=== PATIENT | female | born 1950 | race Caucasian/White ===

== ENCOUNTER 2020-02-01 14:45 | Emergency (ER) | payer MEDICARE, OTHER, SELFPAY ==
[2020-02-01] VITALS (8 sets, daily range): BP systolic 97–123; BP diastolic 60–88; PULSE 103–130; RESP 15–19; TEMP 36.4–36.9; O2SAT 90–96; BMI 35.2
--- NOTE | 2020-02-01 15:10 | W.ED.GENADLT ---
HPI - General Adult General: Chief complaint: General Medical Stated complaint: not feeling well post surgery Time Seen by Provider: 02/01/20 15:10 History of Present Illness: HPI narrative: 69-year-old female Complaining of generalized weakness she stood up today and almost felt like she was going to pass out she is extremely weak she had a knee surgery done a couple of weeks ago postoperatively her hemoglobin dropped down to 6 8 she was transfused and went back up to 7.7. She is not had any pain today she denies any abdominal pain or chest pain no nausea vomiting or diarrhea no dysuria urgency or frequency she does have a little shortness of breath with exertion but no associated chest pain the shortness of breath is proportion to her exertion does not seem abnormal for her. Onset (ago): hour(s) Severity: moderate Relieving factors: rest Exacerbating factors: movement Associated symptoms: Reports malaise; Deny chest pain, confusion, cough, diaphoresis, decreased appetite, dyspnea, fevers/chills, headache(s), nausea, rash, palpitations, short of breath, syncope, vomiting or weakness Treatments prior to arrival: none Review of Systems Const: Reports: malaise; Denies: diaphoresis ENMT: Denies: throat pain, ear or mastoid pain, nasal discharge or nasal congestion Card: Denies: chest pain, palpitations or syncope Resp: Denies: dyspnea GI: Denies: nausea or vomiting : Denies: flank pain, difficulty voiding, dysuria, urinary frequency or urinary urgency Skin/Breast: Denies: rash or pruritus Neuro: Denies: headache(s) or confusion PFS ED PFSH: Medical History (Updated 02/01/20 @ 17:39 by Ren Wren DO) Hypertension Surgical History (Updated 02/01/20 @ 17:40 by Ren Wren DO) History of arthroplasty of left knee Physical Exam Const: COMMON NORMALS: no acute distress GENERAL APPEARANCE: cooperative and comfortable ORIENTATION/CONSCIOUSNESS: Yes awake, Yes oriented to person, Yes oriented to place and Yes oriented to time HENMT: COMMON NORMALS: normocephalic and atraumatic HEAD & SCALP: normocephalic and atraumatic Eye: COMMON NORMALS: Equal, round and reactive pupils present, EOMs intact bilaterally, conjunctivae normal and no scleral icterus CONJUNCTIVA: Yes conjunctivae normal PUPIL: Yes Equal, round and reactive pupils present Neck/C-Spine: COMMON NORMALS: full ROM, no lymphadenopathy, supple and no JVD Lymph: LYMPHATIC: no lymphadenopathy noted and no lymphedema noted Resp: COMMON NORMALS: normal respiratory effort, No retractions, No use of accessory muscles and clear to auscultation bilaterally AUSCULTATION: clear to auscultation bilaterally Cardio: COMMON NORMALS: no JVD, regular rate, regular rhythm and No murmurs present (Cardio) RATE: regular rate RHYTHM: regular rhythm GI: COMMON NORMALS: Soft to palpation and No hepatosplenomegaly present AUSCULTATION: Yes normoactive bowel sounds PALPATION: Yes Soft to palpation, No Tenderness to palpation present (GI), No Guarding due to palpation present (GI) and Yes No hepatosplenomegaly present Extremity: COMMON NORMALS: normal to inspection, capillary refill normal, no clubbing, cyanosis or edema, no calf tenderness and no pedal edema Neuro: SENSORIUM/ORIENTATION: Yes oriented to person, Yes oriented to place and Yes oriented to time Skin: COMMON NORMALS: no rashes or lesions noted GENERAL SKIN EXAM: no rashes or lesions noted Course Vital Signs: Vital signs: Vital Signs Temperature 97.6 F 02/01/20 14:49 Pulse Rate 113 H 02/01/20 17:04 Respiratory Rate 18 02/01/20 14:49 Blood Pressure 105/74 02/01/20 17:04 Pulse Oximetry 90 02/01/20 14:49 MDM - General Adult MDM Narrative: Medical decision making narrative: Patient still has mild anemia but it is actually improved from previous. Her postural hype orthostatics were normal. She is feeling somewhat better will go ahead and discharge her home encourage mild to moderate activity at home follow-up with her doctor as planned return to the emergency room if she has any difficulty or problems. Lab Data: Labs: Lab Results 02/01/20 02/01/20 02/01/20 Range/Units 15:39 15:39 16:11 WBC 13.3 H (4.0-10.0) 10^3/ uL RBC 3.80 L (4.1-5.3) 10^6/u L Hgb 8.7 L (11.5-15.3) g/dL Hct 30.1 L (37.0-47.0) % MCV 79.2 L (81-99) fL MCH 22.9 L (28.0-34.0) pg MCHC 28.9 L (30.0-36.0) g/dL RDW 17.8 H (12.1-15.1) % Plt Count 363 (130-400) 10^3/c mm MPV 9.4 (7.4-10.4) fL Neut % (Auto) 83.9 % Lymph % (Auto) 9.6 % [place] % (Auto) 5.2 % Eos % (Auto) 0.2 % Baso % (Auto) 0.4 % Neut # (Auto) 11.19 H (1.8-7.7) 10^3/u L Lymph # (Auto) 1.3 (0.8-4.8) 10^3/u L [place] # (Auto) 0.7 (0.2-0.9) 10^3/u L Eos # (Auto) 0.0 (0.0-0.8) 10^3/u L Baso # (Auto) 0.1 (0.0-0.1) 10^3/u L Nucleated RBC % (a uto) 0 % Nucleated RBCs # 0.0 /100WBC Sodium 139 (136-145) mmol/L Potassium 3.8 (3.5-5.1) mmol/L Chloride 99 (98-107) mmol/L Carbon Dioxide 25 (22-29) mmol/L Anion Gap 18.8 (5-19) BUN 24 H (8-23) mg/dL Creatinine 0.7 (0.5-0.9) mg/dL GFR Calculation 83.0 L (90-130) mL/min Glucose 149 H (65-115) mg/dL Calculated Osmolal ity 288 (285-295) mOsm/k g Calcium 9.2 (8.5-10.5) mg/dL Total Bilirubin 0.3 (0.15-1.2) mg/dL AST 15 (0-32) U/L ALT 8 (0-33) U/L Alkaline Phosphata se 93 (35-105) IU/L Total Protein 7.6 (6.6-8.7) g/dL Albumin 4.0 (3.5-5.2) g/dL Globulin 3.6 (1.3-4.6) g/dL Urine Color Straw (Yellow) Urine Appearance Clear (CLEAR) Urine pH 5 (5-7) Ur Specific Gravit y 1.015 (1.005-1.030) Urine Protein Neg (Negative) Urine Glucose (UA) Norm (Normal) Urine Ketones Negative (Negative) Urine Blood Neg (Negative) Urine Nitrate Negative (Negative) Urine Bilirubin Neg (NEGATIVE) Urine Urobilinogen Norm (Negative) mg/dL Ur Leukocyte Dipti ase Negative (Negative) Discharge Plan Discharge Patient Disposition: Home Clinical Impression: Postural hypotension, Anemia Condition: Stable Prescriptions: No Action Multiple Vitamins Tablet 1 tab PO DAILY RF: 0 nifedipine 30 mg tablet extended release 24hr 30 mg PO DAILY RF: 0 celecoxib 200 mg capsule 200 mg PO BID RF: 0 furosemide 40 mg tablet 40 mg PO DAILY RF: 0 meloxicam 15 mg tablet 15 mg PO DAILY RF: 0 Aspir-81 81 mg Tablet,Delayed Release (Dr/Ec) 81 mg PO BID RF: 0 tramadol 50 mg tablet 50 mg PO QID PRN (Reason: Pain) RF: 0 simvastatin 20 mg tablet 20 mg PO DAILY RF: 0 lisinopril 40 mg tablet 40 mg PO DAILY RF: 0 oxycodone 5 mg tablet 5 mg PO Q4H PRN (Reason: Pain) RF: 0 potassium chloride 10 mEq tablet,ER particles/crystals 10 meq PO BID RF: 0 Discharge Orders: Discharge Order (Routine); Ordered 02/01/20 Ordered By: Ren Wren Discharge Diet: Usual diet Discharge Activity: Increase activity as tolerated Activity Restrictions/Additional Instructions: All up with your primary care provider as scheduled if you have worsening or change symptoms you can return to the emergency room for evaluation. Coding Level of Care Code ED Extermination Inspector for Romeo Roca
--- NOTE | 2020-02-01 15:24 | ECG_ITS ---
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 Measurements Intervals [place] Rate: 110 P: 28 AZ: 138 QRS: 48 QRSD: 90 T: 39 QT: 344 QTc: 467 Interpretive Statements SINUS TACHYCARDIA POSSIBLE LEFT ATRIAL ENLARGEMENT [-0.1mV P WAVE IN V1/V2] ABNORMAL RHYTHM ECG No previous ECG available for comparison Electronically Signed On 02-01-2020 20:43:19 CDT by Jitendra Keen M.D. [id number]
--- NOTE | 2020-02-01 15:24 | XRR_ITS ---
PROCEDURE INFORMATION: Exam: XR Chest, 1 View Exam date and time: 02/01/2020 3:25 PM Age: 69 years old Clinical indication: Dyspnea; Patient HX: Recent left knee surgery; Additional info: Dyspnea/cough TECHNIQUE: Imaging protocol: XR of the chest Views: 1 view. COMPARISON: No relevant prior studies available. FINDINGS: Lungs: Unremarkable. No consolidation. Pleural space: Unremarkable. No pleural effusion. No pneumothorax. Heart/Mediastinum: There is a hiatal hernia present. Bones/joints: Unremarkable. Other findings: The examination is otherwise unremarkable XR/XR chest 1V portable [id number] IMPRESSION: 1. Negative for acute abnormality 2. Hiatal hernia is present
[2020-02-01 15:50] LABS: Basophils # 0.1 10^3/uL (0.0-0.1); Basophils % 0.4 %; Eosinophils % 0.2 %; Hematocrit 30.1 % (37.0-47.0); Hemoglobin 8.7 g/dL (11.5-15.3); Lymphocytes # 1.3 10^3/uL (0.8-4.8); Lymphocytes % 9.6 %; Mean Corpuscular HGB Conc 28.9 g/dL (30.0-36.0); Mean Corpuscular Hemoglobin 22.9 pg (28.0-34.0); Mean Corpuscular Volume 79.2 fL (81-99); Mean Platelet Volume 9.4 fL (7.4-10.4); Monocytes # 0.7 10^3/uL (0.2-0.9); Monocytes % 5.2 %; Neutrophils # 11.19 10^3/uL (1.8-7.7); Neutrophils % 83.9 %; Nucleated Red Blood Cells % 0 %; Platelet Count 363 10^3/cmm (130-400); Red Cell Distribution Width 17.8 % (12.1-15.1); White Blood Count 13.3 10^3/uL (4.0-10.0)
[2020-02-01 16:15] LABS: Alanine Aminotransferase 8 U/L (0-33); Alkaline Phosphatase 93 IU/L (35-105); Anion Gap 18.8 (5-19); Aspartate Amino Transferase 15 U/L (0-32); Blood Urea Nitrogen 24 mg/dL (8-23); Calcium 9.2 mg/dL (8.5-10.5); Carbon Dioxide 25 mmol/L (22-29); Chloride 99 mmol/L (98-107); Globulin 3.6 g/dL (1.3-4.6); Glucose 149 mg/dL (65-115); Osmolality Calculated 288 mOsm/kg (285-295); Potassium 3.8 mmol/L (3.5-5.1); Sodium 139 mmol/L (136-145); Total Bilirubin 0.3 mg/dL (0.15-1.2); Total Protein 7.6 g/dL (6.6-8.7)
[2020-02-01 16:15] LABS: Add Urine Microscopic? NO
[2020-02-01 16:19] LABS: Urine Appearance Clear (CLEAR); Urine Color Straw (Yellow); pH Urine 5 (5-7)
[2020-02-01 16:20] LABS: Bilirubin Urine Neg (NEGATIVE); Blood Urine Neg (Negative); Glucose Urine UA Norm (Normal); Ketones Urine Negative (Negative); Leukocyte Esterase Urine Negative (Negative); Nitrate Urine Negative (Negative); Protein Urine Neg (Negative); Specific Gravity, Urine 1.015 (1.005-1.030); Urobilinogen Urine Norm (Negative)
--- NOTE | 2020-02-01 17:45 | CTR_ITS ---
PROCEDURE INFORMATION: Exam: CT Angiography Chest With Contrast Exam date and time: 02/01/2020 6:18 PM Age: 69 years old Clinical indication: Shortness of breath; Patient HX: PT is S/P L tka revision 01/25 C/O SOB; Additional info: Hypoxia TECHNIQUE: Imaging protocol: Computed tomographic angiography of the chest with intravenous contrast. 3D rendering: MIP and/or 3D reconstructed images were created by the technologist. Radiation optimization: All CT scans at this facility use at least one of these dose optimization techniques: automated exposure control; mA and/or kV adjustment per patient size (includes targeted exams where dose is matched to clinical indication); or iterative reconstruction. Contrast material: OMNI 350; Contrast volume: 95 ml; Contrast route: INTRAVENOUS (IV); COMPARISON: CR XR chest 1V portable [id number] 02/01/2020 3:33 PM RADIATION DOSE METRICS: Total DLP (mGy-cm): 554.22 FINDINGS: Pulmonary arteries: The exam is positive for pulmonary emboli with multiple filling defects in the main and proximal pulmonary artery branches bilaterally. Aorta: Unremarkable. No aortic aneurysm. No aortic dissection. Lungs: There is subpleural atelectasis of the dependent portions of the lungs. No airspace consolidation or lobar infiltrate. There is a 5 mm ground-glass nodule right upper lobe image 15. Pleural space: Unremarkable. No pneumothorax. No pleural effusion. Heart: There is no saddle embolus or right heart strain. The heart is enlarged. Mediastinal space: A moderate hiatal hernia is present. Lymph nodes: Unremarkable. No enlarged lymph nodes. Liver: Multiple small hypodensities are noted in the liver. Some are too small to characterize but there are 2 separate 1.4 cm fluid density cyst in the liver on image 380. Gallbladder and bile ducts: There has been a cholecystectomy. Kidneys and ureters: There is a 3.2 cm midpole simple cyst in the right kidney. No follow-up is necessary. Bones/joints: There are moderate degenerative changes in the spine. No acute bony abnormality. [id number] degenerative changes are noted. Soft tissues: Unremarkable. CT/CT angio chest PE protcl [id number] IMPRESSION: 1. The exam is positive for pulmonary emboli with multiple filling defects in the main and proximal pulmonary artery branches bilaterally. There is no saddle embolus or right heart strain. 2. 5 mm ground-glass nodule right upper lobe.No routine follow-up is indicated. (Armond et al., Fleischner Society, 2017) COMMENTS: Consistent with the [place] [employer]'s Incidental Findings Committee white paper (J Am Zay Radiol 2018): Any incidental renal lesion less than 1.0 cm or classified as too small to characterize, or any incidental cystic renal lesion characterized as simple-appearing, is likely benign. No follow-up imaging is recommended for these lesions per consensus recommendations based on imaging criteria. Radiation Dose CTDIVOL = (mGy): DLP = 554.22 (mGy-cm)
--- NOTE | 2020-02-01 18:36 | PC.NURSE ---
patient was to be discharged and room air sats were 86% emd informed and they will do a cta
--- NOTE | 2020-02-01 18:41 | PC.NURSE ---
patient to ct
[2020-02-01] MEDS: iohexol 350 mg/mL 100 mL Btl IV (18:55)
--- NOTE | 2020-02-01 19:26 | ECG_ITS ---
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 Measurements Intervals [place] Rate: 109 P: 18 AL: 146 QRS: 41 QRSD: 86 T: 38 QT: 335 QTc: 453 Interpretive Statements SINUS TACHYCARDIA NONSPECIFIC T-WAVE ABNORMALITY ABNORMAL RHYTHM ECG Compared to ECG 02/01/2020 16:14:18 T-wave abnormality now present Electronically Signed On 02-01-2020 20:45:17 CDT by Jitendra Keen M.D. [id number]
[2020-02-01] MEDS: enoxaparin 100 mg/mL Syringe 90 MG SUBCUT (19:27)
--- NOTE | 2020-02-01 19:27 | W.ED.GENADLT ---
HPI - General Adult General: Chief complaint: General Medical Stated complaint: not feeling well post surgery Time Seen by Provider: 02/01/20 15:10 History of Present Illness: Relieving factors: rest Exacerbating factors: movement Treatments prior to arrival: none PFSH ED PFSH: Medical History (Updated 02/01/20 @ 19:28 by Cecilio Mccarthy MD) Hypertension Surgical History (Updated 02/01/20 @ 17:40 by Ren Wren DO) History of arthroplasty of left knee Course Vital Signs: Vital signs: Vital Signs Temperature 97.6 F 02/01/20 14:49 Pulse Rate 105 H 02/01/20 19:05 Respiratory Rate 19 H 02/01/20 19:05 Blood Pressure 114/79 02/01/20 19:05 Pulse Oximetry 96 02/01/20 19:05 MDM - General Adult MDM Narrative: Medical decision making narrative: Patient presents here with pulmonary emboli likely causing her lightheadedness. She did have recent surgery and is not on blood thinners. CT shows no signs of heart strain. Will place patient on Lovenox spoke to hospitalist will admit here. Lab Data: Labs: Lab Results 02/01/20 02/01/20 02/01/20 Range/Units 15:39 15:39 16:11 WBC 13.3 H (4.0-10.0) 10^3/ uL RBC 3.80 L (4.1-5.3) 10^6/u L Hgb 8.7 L (11.5-15.3) g/dL Hct 30.1 L (37.0-47.0) % MCV 79.2 L (81-99) fL MCH 22.9 L (28.0-34.0) pg MCHC 28.9 L (30.0-36.0) g/dL RDW 17.8 H (12.1-15.1) % Plt Count 363 (130-400) 10^3/c mm MPV 9.4 (7.4-10.4) fL Neut % (Auto) 83.9 % Lymph % (Auto) 9.6 % [place] % (Auto) 5.2 % Eos % (Auto) 0.2 % Baso % (Auto) 0.4 % Neut # (Auto) 11.19 H (1.8-7.7) 10^3/u L Lymph # (Auto) 1.3 (0.8-4.8) 10^3/u L [place] # (Auto) 0.7 (0.2-0.9) 10^3/u L Eos # (Auto) 0.0 (0.0-0.8) 10^3/u L Baso # (Auto) 0.1 (0.0-0.1) 10^3/u L Nucleated RBC % (a uto) 0 % Nucleated RBCs # 0.0 /100WBC Sodium 139 (136-145) mmol/L Potassium 3.8 (3.5-5.1) mmol/L Chloride 99 (98-107) mmol/L Carbon Dioxide 25 (22-29) mmol/L Anion Gap 18.8 (5-19) BUN 24 H (8-23) mg/dL Creatinine 0.7 (0.5-0.9) mg/dL GFR Calculation 83.0 L (90-130) mL/min Glucose 149 H (65-115) mg/dL Calculated Osmolal ity 288 (285-295) mOsm/k g Calcium 9.2 (8.5-10.5) mg/dL Total Bilirubin 0.3 (0.15-1.2) mg/dL AST 15 (0-32) U/L ALT 8 (0-33) U/L Alkaline Phosphata se 93 (35-105) IU/L Total Protein 7.6 (6.6-8.7) g/dL Albumin 4.0 (3.5-5.2) g/dL Globulin 3.6 (1.3-4.6) g/dL Urine Color Straw (Yellow) Urine Appearance Clear (CLEAR) Urine pH 5 (5-7) Ur Specific Gravit y 1.015 (1.005-1.030) Urine Protein Neg (Negative) Urine Glucose (UA) Norm (Normal) Urine Ketones Negative (Negative) Urine Blood Neg (Negative) Urine Nitrate Negative (Negative) Urine Bilirubin Neg (NEGATIVE) Urine Urobilinogen Norm (Negative) mg/dL Ur Leukocyte Dipti ase Negative (Negative) Discharge Plan Discharge Patient Disposition: Admitted As Inpatient Clinical Impression: Pulmonary embolism Qualifiers: Pulmonary embolism type: unspecified Chronicity: acute Acute cor pulmonale presence: without acute cor pulmonale Qualified Code(s): I26.99 - Other pulmonary embolism without acute cor pulmonale Condition: Stable Discharge Diet: Usual diet Discharge Activity: Increase activity as tolerated Additional Instructions: All up with your primary care provider as scheduled if you have worsening or change symptoms you can return to the emergency room for evaluation. Coding Level of Care Code ED Vice President Medical Affairs for Romeo Roca
--- NOTE | 2020-02-01 19:39 | P.HP_ITS ---
Providers/Chief Complaint Chief Complaint: not feeling well post surgery History of Present Illness Karina Em is a 69 year old female Medications/Allergies Home Medications Medication Instructions Recorded Confirmed Last Taken Type aspirin [Aspir-81] 81 mg PO BID 02/01/20 02/01/20 02/01/20 History celecoxib 200 mg PO BID 02/01/20 02/01/20 02/01/20 History furosemide 40 mg PO DAILY 02/01/20 02/01/20 02/01/20 History lisinopril 40 mg PO DAILY 02/01/20 02/01/20 02/01/20 History meloxicam 15 mg PO DAILY 02/01/20 02/01/20 Unknown History multivitamin [Multiple Vitamins] 1 tab PO DAILY 02/01/20 02/01/20 01/30/20 History nifedipine 30 mg PO DAILY 02/01/20 02/01/20 02/01/20 History oxycodone 5 mg PO Q4H PRN 02/01/20 02/01/20 Unknown History potassium chloride 10 meq PO BID 02/01/20 02/01/20 02/01/20 History simvastatin 20 mg PO DAILY 02/01/20 02/01/20 01/31/20 History tramadol 50 mg PO QID PRN 02/01/20 02/01/20 Unknown History Allergies Allergy/AdvReac Type Severity Reaction Status Date / Time No Known Allergies Allergy Verified 02/01/20 16:09 PFSH Acute PFSH: Medical History (Updated 02/01/20 @ 19:45 by Shon Meade MD) Hypertension Vaginal prolapse Surgical History (Updated 02/01/20 @ 17:40 by Ren Wren DO) History of arthroplasty of left knee Vitals/I&O/Wt Last Vital Signs Temp 97.6 F 02/01/20 14:49 Pulse 105 H 02/01/20 19:05 Resp 19 H 02/01/20 19:05 BP 114/79 02/01/20 19:05 Pulse Ox 96 02/01/20 19:05 Weight last 48 hrs Weight 92.986 kg Data : 02/01/20 15:39 02/01/20 15:39 A&P Assessment and plan (1) Pulmonary embolism: Status: Acute Qualifiers: Acute cor pulmonale presence: without acute cor pulmonale Chronicity: acute Pulmonary embolism type: unspecified Qualified Code(s): I26.99 - Other pulmonary embolism without acute cor pulmonale Coding Level of Care Code Acute [facility] for [facility] Fwd Diagnoses Pulmonary embolism I26.99 Acute cor pulmonale presence: without acute cor pulmonale Chronicity: acute Pulmonary embolism type: unspecified
[2020-02-01 20:06] LABS: Hematocrit 27.5 % (37.0-47.0); Hemoglobin 8.2 g/dL (11.5-15.3)
[2020-02-01 20:08] LABS: NT Pro B Type Natriuretic Pept 1602 pg/mL (0-125)
[2020-02-01 20:23] LABS: Troponin(5th) Baseline 136 ng/L (0-10)
--- NOTE | 2020-02-01 21:26 | ECG_ITS ---
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 Measurements Intervals [place] Rate: 103 P: 27 AZ: 153 QRS: 50 QRSD: 88 T: 41 QT: 353 QTc: 464 Interpretive Statements SINUS TACHYCARDIA NONSPECIFIC T-WAVE ABNORMALITY ABNORMAL RHYTHM ECG Compared to ECG 02/01/2020 19:36:28 No significant changes Electronically Signed On 02-03-2020 9:39:37 CDT by Jitendra Keen M.D. [email or web address] [facility] [id number]
--- NOTE | 2020-02-01 21:32 | PC.NURSE ---
EKG done at 2130 and shown to ER doctor
--- NOTE | 2020-02-01 22:23 | PC.NURSE ---
Called report to [facility] ICU spoke with MARLYN Perez. report given. all questions answered at this time. patient vital signs WNL. patient still requiring 2L on NC. will continue to monitor.
[2020-02-01 22:55] LABS: Troponin 5 2HR 116.2 ng/L (0-10); Troponin 5 2HR Delta -19.8 ABS# (0-10)
== END 2020-02-01 22:47 | disposition short-term general hospital (02) ==
LOC: ER 19:28 → CSU 22:35
PROVIDERS: Family Medicine; Internal Medicine; Emergency Provider Emergency Medicine
DX: I95.1 Orthostatic hypotension (principal); D64.9 Anemia, unspecified; Z79.82 Long term (current) use of aspirin; I10 Essential (primary) hypertension
CPT/HCPCS: 12345; 71045; 71275; 80053; 81003; 83880; 84484; 85014; 85018; 85025; 93005; 96372; 99284; 99285; J1650; Q9967

== ENCOUNTER 2020-10-23 06:00 | Outpatient (RCR) | payer MEDICARE, OTHER, SELFPAY | END 2020-10-30 23:59 | disposition home or self-care (01) | LOC: GPT 06:00 | PROVIDERS: Referring Provider Physician Assistant; Visit Provider Physician Assistant | DX: Z47.1 Aftercare following joint replacement surgery (principal); Z96.652 Presence of left artificial knee joint | CPT/HCPCS: 97110; 97116; 97161; 97530 ==

== ENCOUNTER 2020-10-31 06:00 | Outpatient (RCR) | payer MEDICARE, OTHER, SELFPAY | END 2020-11-30 23:59 | disposition home or self-care (01) | LOC: GPT 06:00 | PROVIDERS: Referring Provider Physician Assistant; Visit Provider Physician Assistant | DX: Z47.1 Aftercare following joint replacement surgery (principal); Z96.652 Presence of left artificial knee joint | CPT/HCPCS: 97110; 97112; 97116; 97530 ==

== ENCOUNTER 2021-05-03 06:00 | Outpatient (RCR) | payer MEDICARE, OTHER, SELFPAY | END 2021-06-01 23:59 | disposition home or self-care (01) | LOC: GPT 06:00 | PROVIDERS: PCP Nurse Practitioner; Visit Provider Student in an Organized Health Care Education/Training Program | DX: Z96.651 Presence of right artificial knee joint (principal) | CPT/HCPCS: 97110; 97140; 97161; 97530; G0283 ==

== ENCOUNTER → 2021-05-11 10:36 | Outpatient (BNVA) | payer MEDICARE, OTHER, SELFPAY | PROVIDERS: PCP Nurse Practitioner; Visit Provider Internal Medicine | DX: R70.0 Elevated erythrocyte sedimentation rate (principal); M19.90 Unspecified osteoarthritis, unspecified site; I26.99 Other pulmonary embolism without acute cor pulmonale; Z11.59 Encounter for screening for other viral diseases; Z11.1 Encounter for screening for respiratory tuberculosis; Z79.01 Long term (current) use of anticoagulants; Z79.899 Other long term (current) drug therapy; Z87.891 Personal history of nicotine dependence | CPT/HCPCS: 36415; 99204 ==

== ENCOUNTER 2021-05-11 12:36 | Outpatient (CLI) | payer MEDICARE, OTHER, SELFPAY ==
--- NOTE | 2021-05-11 12:44 | XR_ITS ---
WS: [id number] TECHNIQUE: 2 views of the left hand CLINICAL INFORMATION: R70.0 - Elevated erythrocyte sedimentation rate COMPARISON: None. FINDINGS: Osteopenia. Mild narrowing of the radiocarpal joint. Normal scaphoid and lunate. Normal metacarpals. Joint space narrowing worse involving the fifth fourth and fifth PIP joints and second through fifth DIP joints. No significant erosive changes. XR/XR hand LT 2V [id number] IMPRESSION: IP joint narrowing. No significant erosive changes.
--- NOTE | 2021-05-11 12:44 | XR_ITS ---
WS: [email or web address] TECHNIQUE: 2 views of the right hand CLINICAL INFORMATION: R70.0 - Elevated erythrocyte sedimentation rate COMPARISON: None. FINDINGS: Osteopenia. Mild narrowing of the radiocarpal joint. Normal scaphoid and lunate. Degenerative arthrit is first CMC and STT. Normal metacarpals. MCP joints are normal. Mild degenerative narrowing involvin g the DIP and PIP joints worse involving the second PIP joint with hypertrophic changes. No significa nt erosive changes. XR/XR hand RT 2V [id number] IMPRESSION: No significant erosive changes
== END 2021-05-11 12:37 | disposition home or self-care (01) ==
PROVIDERS: PCP Nurse Practitioner; Visit Provider Internal Medicine
DX: R70.0 Elevated erythrocyte sedimentation rate (principal); Z11.59 Encounter for screening for other viral diseases; Z11.1 Encounter for screening for respiratory tuberculosis; I26.99 Other pulmonary embolism without acute cor pulmonale; M19.90 Unspecified osteoarthritis, unspecified site; Z79.01 Long term (current) use of anticoagulants; Z79.899 Other long term (current) drug therapy; Z87.891 Personal history of nicotine dependence
CPT/HCPCS: 36415; 73120; 82728; 83540; 84443; 85651; 86140; 86160; 86162; 86200; 86235; 86255; 86376; 86480; 86704; 86803; 87340; 99204

== ENCOUNTER → 2021-05-21 09:31 | Outpatient (BNVA) | payer MEDICARE, OTHER, SELFPAY | PROVIDERS: PCP Nurse Practitioner; Visit Provider Internal Medicine | DX: R70.0 Elevated erythrocyte sedimentation rate (principal); M19.90 Unspecified osteoarthritis, unspecified site; Z96.652 Presence of left artificial knee joint; I26.99 Other pulmonary embolism without acute cor pulmonale | CPT/HCPCS: 99214 ==

== ENCOUNTER 2021-06-02 06:00 | Outpatient (RCR) | payer MEDICARE, OTHER, SELFPAY | END 2021-07-02 23:59 | disposition home or self-care (01) | LOC: GPT 06:00 | PROVIDERS: PCP Nurse Practitioner; Visit Provider Student in an Organized Health Care Education/Training Program | DX: Z96.651 Presence of right artificial knee joint (principal) | CPT/HCPCS: 97110; 97140; G0283 ==

== ENCOUNTER 2021-07-03 06:00 | Outpatient (RCR) | payer MEDICARE, OTHER, SELFPAY | END 2021-07-28 23:59 | disposition home or self-care (01) | LOC: GPT 06:00 | PROVIDERS: PCP Nurse Practitioner; Visit Provider Student in an Organized Health Care Education/Training Program | DX: Z96.652 Presence of left artificial knee joint (principal) | CPT/HCPCS: 97110; 97140 ==

== ENCOUNTER → 2021-08-31 10:28 | Outpatient (BNVA) | payer MEDICARE, OTHER, SELFPAY | PROVIDERS: PCP Nurse Practitioner; Visit Provider Internal Medicine | DX: R70.0 Elevated erythrocyte sedimentation rate (principal); M19.90 Unspecified osteoarthritis, unspecified site; I26.99 Other pulmonary embolism without acute cor pulmonale; Z79.899 Other long term (current) drug therapy; Z87.891 Personal history of nicotine dependence | CPT/HCPCS: 99213; 99214 ==